=== PATIENT | female | born 1975 | race Caucasian/White ===

== ENCOUNTER 2022-07-14 09:00 | Emergency (ER) | payer OTHER, SELFPAY ==
[2022-07-14 09:08] VITALS: BP 136/86; PULSE 76; RESP 20; TEMP 36.4; O2SAT 100
--- NOTE | 2022-07-14 09:23 | ED.FEMALEGU ---
HPI - Female Genitourinary General Chief complaint: Urogenital-Female Stated complaint: Urinary Problem Time Seen by Provider: 07/14/22 09:21 Source: patient and RN notes reviewed Mode of arrival: ambulatory Limitations: no limitations History of Present Illness HPI Narrative: 47-year-old female presents with concern for urinary tract infection or kidney infection. Reports for 1 week she has had bilateral flank pain, urinary urgency. Reports the urgency is waking her up in the middle of the night. She reports feeling feverish on and off for the last week. She denies dysuria, nausea, vomiting. She reports history of urinary tract infections with similar symptoms. She reports she is taken ibuprofen with occasional relief. MD elicited complaint: UTI Related Data Allergies Allergy/AdvReac Type Severity Reaction Status Date / Time No Known Drug Allergies Allergy Unknown Verified 04/17/14 11:55 Review of Systems Review of Systems: CONSTITUTIONAL: Reports malaise, and feeling feverish CARDIOVASCULAR: Denies chest pain, palpitations, or edema. RESPIRATORY: Denies cough or dyspnea. GASTROINTESTINAL: Denies abdominal pain, nausea, vomiting, diarrhea GENITOURINARY: Denies dysuria, frequency, suprapubic pressure, hematuria. Reports bilateral flank pain and urinary urgency SKIN: Denies rash or itching. MUSCULOSKELETAL: Denies back pain or myalgia. All systems reviewed & are unremarkable except as noted in HPI and below PMFSH Comments At time of signature, agree with nursing past medical, surgical, social and family history. There is no relevant family history pertinent to the presenting complaint Exam Narrative: GENERAL: Well-appearing, well-nourished, and in no acute distress. HEAD: Normocephalic. EYES: PERRLA, conjunctivae clear. NECK: Supple. No lymphadenopathy CHEST: Clear to auscultation. No respiratory distress. HEART: Regular rate and rhythm. ABDOMEN: Soft, right lower quadrant tenderness, otherwise nontender nondistended, normal active bowel sounds, no palpable or pulsatile masses, no guarding. Bilateral CVA tenderness SKIN: War dry, no rash. NEURO: Alert and oriented x3. PSYCH: Normal mood and affect Course Course Emergency Course: UA findings with patient. Discussed option of starting antibiotic now or waiting for urine culture results, patient would prefer to start antibiotic now. Advised patient to call to inquire about urine culture results later this week. Patient is aware of diagnosis, understands and agrees to treatment plan. Anticipatory guidance given. Patient agrees to follow-up as directed and is aware of reasons to seek care at the emergency department. Portions of this record may have been created with voice recognition software Level of Care: Express Care Visit Vital Signs Vital signs: Vital Signs Temperature 97.5 F L 07/14/22 09:08 Pulse Rate 76 07/14/22 09:08 Respiratory Rate 20 07/14/22 09:08 Blood Pressure 136/86 07/14/22 09:08 Pulse Oximetry 100 07/14/22 09:08 Oxygen Delivery Room Air 07/14/22 09:08 Temperature 97.5 F L 07/14/22 09:08 Pulse Rate 76 07/14/22 09:08 Respiratory Rate 20 07/14/22 09:08 Blood Pressure 136/86 07/14/22 09:08 Pulse Oximetry 100 07/14/22 09:08 Oxygen Delivery Room Air 07/14/22 09:08 Reviewed. MDM - Female Genitourinary MDM Narrative Medical decision making narrative: Exam findings and UA show no acute concerns or changes; patient is non-toxic appearing and is in no distress. Patient is appropriate for outpatient treatment and follow-up. Differential Diagnosis Differential diagnosis: Likely urinary tract infection and cystitis Lab Data Labs: Urine Glucose Negative Reference Range: Negative Urine Bilirubin Negative Reference Range: Negative Urine Ketone Negative
== END 2022-07-14 09:36 | disposition home or self-care (01) ==
PROVIDERS: Emergency Provider Nurse Practitioner; PCP Nurse Practitioner Family
DX: R39.15 Urgency of urination (principal); R10.9 Unspecified abdominal pain
CPT/HCPCS: 81003; 87086; 99203; G0463

== ENCOUNTER 2024-10-13 08:53 | Outpatient (CLI) | payer OTHER, SELFPAY ==
[2024-10-13 19:27] LABS: Hematocrit 37.7 % (37.0-47.0); Hemoglobin 12.4 g/dL (12.0-15.0); Mean Corpuscular HGB Conc 32.9 g/dl (32-36); Mean Corpuscular Hemoglobin 32.3 pg (26-34); Mean Corpuscular Volume 98.2 fl (80-100); Mean Platelet Volume 10.1 fl (7.4-10.4); Platelet Count Result 222 k/mm3 (150-375); Red Blood Count 3.84 M/mm3 (4.2-5.4); Red Cell Distribution Width 13.4 % (11.5-14.5); White Blood Count 4.9 K/mm3 (4.5-10.0)
[2024-10-13 20:28] LABS: LDL Cholesterol Direct 78 mg/dL
[2024-10-13 20:32] LABS: Alanine Aminotransferase 27 U/L (6-35); Albumin Level 4.5 g/dL (3.5-5.1); Alkaline Phosphatase 76 U/L (38-126); Anion Gap 6 mmol/L (4-12); Aspartate Amino Transferase 58 U/L (14-36); Blood Urea Nitrogen 19 mg/dL (7-17); Calcium 9.2 mg/dL (8.4-10.2); Carbon Dioxide 25 mmol/L (22-30); Chloride 104 mmol/L (98-107); Cholesterol 232 mg/dL (0-200); Estimated Glomerular Filt Rate > 60; Glucose 92 mg/dL (65-110); Potassium 4.3 mmol/L (3.4-5.0); Sodium 135 mmol/L (137-145); Triglycerides 69 mg/dL (<150)
[2024-10-13 20:34] LABS: HDL Direct 115 mg/dL
[2024-10-13 21:23] LABS: Vitamin D 25 Hydroxy 33.5 ng/mL
[2024-10-13 21:25] LABS: Hemoglobin A1C 5.7 % (<5.7)
== END 2024-10-13 08:54 | disposition home or self-care (01) ==
LOC: ANHBWCLAB 08:55
PROVIDERS: PCP Nurse Practitioner Adult Health; Visit Provider Nurse Practitioner Adult Health
DX: R63.5 Abnormal weight gain (principal); Z13.9 Encounter for screening, unspecified; Z87.81 Personal history of (healed) traumatic fracture
CPT/HCPCS: 36415; 80053; 80061; 82306; 82607; 83036; 84443; 85027

== ENCOUNTER 2024-11-10 11:55 | Outpatient (CLI) | payer OTHER, SELFPAY ==
--- NOTE | ~2024-11-10 | XR_ITS ---
EXAMINATION: XR lumbar spine 2-3V DATE: 11/10/2024 12:06 INDICATION: Chronic low back pain. TECHNIQUE: 3 views of lumbar spine were obtained. COMPARISON: None. FINDINGS: There is 3 degrees levocurvature of lumbar spine. Vertebral body heights are normal. Interv ertebral disc heights are normal. There are endplate osteophytes at multiple levels. There is multile laura facet joint osteoarthritis, severe in lower lumbar spine. IMPRESSION: 1. Mild lumbar spondylosis. Reviewed, dictated and finalized at location A. ON DIOXIDE OPERATOR IMPRESSION: 1. Mild lumbar spondylosis.
== END 2024-11-10 11:56 | disposition home or self-care (01) ==
LOC: ANHBWCIMG 11:56
PROVIDERS: PCP Nurse Practitioner Adult Health; Visit Provider Nurse Practitioner Adult Health
DX: M47.26 Other spondylosis with radiculopathy, lumbar region (principal)
CPT/HCPCS: 72100

== ENCOUNTER 2024-12-12 08:45 | Outpatient (CLI) | payer OTHER, SELFPAY ==
--- NOTE | ~2024-12-12 | MR_ITS ---
Procedure: MR lumbar spine wo con Ordering provider: Daylin Espinosa APRN History: . M54.16 - Radiculopathy, lumbar region . Comparison: None. Technique: MRI of lumbar spine without contrast. FINDINGS: SPINAL CORD: Normal. The cord ends at the level of L1. VERTEBRAL BODIES: Normal height and alignment. No compression fracture. Normal marrow signal. DISK SPACES: Normal. Bilateral facet joint disease at the level of L2-L3, L3-L4 and L4-L5.. STENOSIS: None. PARASPINOUS SOFT TISSUES: Normal. IMPRESSION: No compression fracture or stenosis of the lumbar spine. Multilevel facet joint disease with no evidence of spinal canal stenosis, intervertebral foraminal na rrowing and root compression seen. Reviewed, dictated and finalized at location A. E SPECIALIST IMPRESSION: No compression fracture or stenosis of the lumbar spine. Multilevel facet joint disease with no evidence of spinal canal stenosis, inter vertebral foraminal narrowing and root compression seen.
== END 2024-12-12 08:46 | disposition home or self-care (01) ==
PROVIDERS: PCP Nurse Practitioner Adult Health; Visit Provider Nurse Practitioner Adult Health
DX: M54.16 Radiculopathy, lumbar region (principal); M51.369 Other intervertebral disc degeneration, lumbar region without mention of lumbar back pain or lower extremity pain
CPT/HCPCS: 72148

== ENCOUNTER 2025-03-31 11:49 | Outpatient (CLI) | payer OTHER, SELFPAY ==
--- NOTE | ~2025-03-31 | MM_ITS ---
EXAMINATION: MM screening zachary BI w kane HISTORY: Screening TECHNIQUE: Craniocaudal and mediolateral oblique 3-D tomosynthesis images were obtained and synthetic 2-D images were generated. CAD analysis was submitted and interpreted. COMPARISON: No prior mammogram is available for comparison at this institution. BREAST PARENCHYMAL COMPOSITION: Not dense: There are scattered areas of fibroglandular density. FINDINGS: There are bilateral breast asymmetries in the upper outer quadrant of the right breast, mid dle third and upper outer quadrant of the left breast, middle third. There are no suspicious calcific ations. IMPRESSION: 1. Bilateral breast asymmetries. 2. Recommend comparison to previous outside mammograms. If prior outside mammograms are not available , correlation with additional diagnostic mammogram and possible additional ultrasound recommended. BI-RADS Category 0: Incomplete: Needs additional imaging evaluation. Reviewed, dictated and finalized at location A. IMPRESSION: 1. Bilateral breast asymmetries. 2. Recommend comparison to previous outside mammograms. If prior outside mammog cezar are not available, correlation with additional diagnostic mammogram and po ssible additional ultrasound recommended. BI-RADS Category 0: Incomplete: Needs additional imaging evaluation.
== END 2025-03-31 11:50 | disposition home or self-care (01) ==
LOC: MICIMG 11:50
PROVIDERS: PCP Nurse Practitioner Adult Health; Visit Provider Nurse Practitioner Adult Health
DX: Z12.31 Encounter for screening mammogram for malignant neoplasm of breast (principal); R92.8 Other abnormal and inconclusive findings on diagnostic imaging of breast
CPT/HCPCS: 77063; 77067

== ENCOUNTER 2025-04-19 09:51 | Outpatient (CLI) | payer OTHER, SELFPAY ==
--- NOTE | ~2025-04-19 | MMUS_ITS ---
EXAMINATION: MM diagnostic zachary BI w kane, US breast BI complete HISTORY: Follow-up breast asymmetries TECHNIQUE: Additional 3-D tomosynthesis images of the breasts were performed and synthetic 2-D images were generated. CAD analysis was submitted and interpreted. High resolution bilateral complete breas t ultrasound was performed. COMPARISON: 03/31/2025 BREAST PARENCHYMAL COMPOSITION: Not dense: There are scattered areas of fibroglandular density. FINDINGS: MAMMOGRAPHIC FINDINGS: There is no mammographic evidence for malignancy in the right breast. There are persistent areas of p ossible architectural distortion in the upper outer quadrant of the left breast, middle third. No dis crete mass. There are no suspicious calcifications. No skin thickening. ULTRASOUND: Complete US of all 4 quadrants of the breast/s and retroareolar region was reviewed. Right breast: At 5:00, 1 cm from the nipple there is a 7 mm intramammary lymph node. At 6:00, 2 cm fr om the nipple there is an oval hypoechoic 3 mm mass with internal heterogeneous echoes, circumscribed margins, parallel orientation, no posterior features and no internal vascularity, likely benign. At 9:00, 3 cm from the nipple there is a 4 mm cyst. Left breast: At 12:00, 2 cm from the nipple there is heterogeneous ill-defined soft tissue with inter nal vascularity, predominantly hypoechoic echotexture with areas of posterior shadowing. Some images suggest an antiparallel hypoechoic mass measuring approximately 3 mm. At 2:00, 4 cm from the nipple t here is a 4 mm cyst. At 5:00, 3 cm from the nipple there is an oval parallel oriented hypoechoic 3 mm mass without internal vascularity or posterior features, likely benign. At 10:00, 4 cm from the nipp le there is a 8 mm cyst. IMPRESSION: 1. Complex hypoechoic soft tissue of the left breast by ultrasound at 12:00, 2 cm from the nipple pos sibly corresponding to the area of asymmetry by mammography. Ultrasound-guided left breast biopsy rec ommended. 2. Additional likely benign bilateral breast masses are demonstrated for which [facility] BI-RADS category 4, suspicious findings. Reviewed, dictated and finalized at location B. IMPRESSION: 1. Complex hypoechoic soft tissue of the left breast by ultrasound at 12:00, 2 cm from the nipple possibly corresponding to the area of asymmetry by mammograp hy. Ultrasound-guided left breast biopsy recommended. 2. Additional likely benign bilateral breast masses are demonstrated for which six-month follow-up limited bilateral breast ultrasound recommended. BI-RADS category 4, suspicious findings.
== END 2025-04-19 09:52 | disposition home or self-care (01) ==
LOC: MICIMG 09:51
PROVIDERS: PCP Nurse Practitioner Adult Health; Visit Provider Nurse Practitioner Adult Health
DX: R92.8 Other abnormal and inconclusive findings on diagnostic imaging of breast (principal)
CPT/HCPCS: 76641; 77062; 77066; G0279

== ENCOUNTER 2025-05-12 08:43 | Outpatient (CLI) | payer OTHER, SELFPAY ==
--- NOTE | ~2025-05-12 | US_ITS ---
US breast LT limited 05/12/2025 09:22 Indication: Possible mass seen on prior examination with shadowing. Procedure: High-resolution Limited ultrasound of the left breast Comparison: Ultrasound dated 04/19/2025 Findings: At 12:00, 2 cm from the nipple there is heterogeneous soft tissue with mildly prominent ser piginous ducts. Due to multiple interfaces there is posterior shadowing. No discrete mass identified for biopsy purposes. Impression: 1: Probable benign soft tissue in the area of sonographic concern at 12:00, 2 cm from the nipple. Six -month follow-up diagnostic left mammogram and Limited left breast ultrasound recommended. BI-RADS CATEGORY 3-PROBABLY BENIGN FINDING RECOMMENDATION: Six-month follow-up diagnostic left mammogram and Limited left breast ultrasound jason mmended. Reviewed, dictated and finalized at location [] Impression: 1: Probable benign soft tissue in the area of sonographic concern at 12:00, 2 c m from the nipple. Six-month follow-up diagnostic left mammogram and Limited le ft breast ultrasound recommended. BI-RADS CATEGORY 3-PROBABLY BENIGN FINDING RECOMMENDATION: Six-month follow-up diagnostic left mammogram and Limited left breast ultrasound recommended.
== END 2025-05-12 08:44 | disposition home or self-care (01) ==
PROVIDERS: PCP Nurse Practitioner Adult Health; Visit Provider Nurse Practitioner Adult Health
DX: N63.20 Unspecified lump in the left breast, unspecified quadrant (principal); R92.8 Other abnormal and inconclusive findings on diagnostic imaging of breast
CPT/HCPCS: 76642

== ENCOUNTER 2025-06-14 09:47 | Outpatient (CLI) | payer OTHER, SELFPAY ==
[2025-06-14 18:32] LABS: Hematocrit 35.0 % (37.0-47.0); Hemoglobin 11.4 g/dL (12.0-15.0); Mean Corpuscular HGB Conc 32.6 g/dl (32-36); Mean Corpuscular Hemoglobin 32.2 pg (26-34); Mean Corpuscular Volume 98.9 fl (80-100); Platelet Count Result 226 k/mm3 (150-375); Red Blood Count 3.54 M/mm3 (4.2-5.4); White Blood Count 5.9 K/mm3 (4.5-10.0)
[2025-06-14 18:45] LABS: Alanine Aminotransferase 22 U/L (6-35); Albumin Level 4.4 g/dL (3.5-5.1); Alkaline Phosphatase 80 U/L (38-126); Anion Gap 7 mmol/L (4-12); Aspartate Amino Transferase 49 U/L (14-36); Bilirubin,Total 1.2 mg/dL (0.2-1.3); Blood Urea Nitrogen 20 mg/dL (7-17); Calcium 9.4 mg/dL (8.4-10.2); Carbon Dioxide 27 mmol/L (22-30); Chloride 102 mmol/L (98-107); Cholesterol 221 mg/dL (0-200); Estimated Glomerular Filt Rate > 60; Glucose 94 mg/dL (65-110); HDL Direct 102 mg/dL; Potassium 4.5 mmol/L (3.4-5.0); Sodium 136 mmol/L (137-145); Total Protein 7.4 g/dL (6.3-8.2); Triglycerides 127 mg/dL (<150)
[2025-06-14 19:20] LABS: Thyroid Stimulating Hormone 1.710 uIU/mL (0.465-4.680)
[2025-06-14 19:39] LABS: Vitamin B12 387.0 pg/mL (239-931)
== END 2025-06-14 09:48 | disposition home or self-care (01) ==
LOC: ANHBWCLAB 09:49
PROVIDERS: PCP Nurse Practitioner Adult Health; Visit Provider Nurse Practitioner Adult Health
DX: D64.9 Anemia, unspecified (principal); R53.83 Other fatigue; Z00.00 Encounter for general adult medical examination without abnormal findings
CPT/HCPCS: 36415; 80053; 80061; 82306; 82607; 84443; 85027

== ENCOUNTER 2025-06-20 11:32 | Outpatient (CLI) | payer OTHER, SELFPAY ==
[2025-06-20 19:42] LABS: Iron 83 ug/dL (37-170)
[2025-06-20 19:54] LABS: Percent Iron Saturation 26 % (20-50)
[2025-06-20 20:19] LABS: Ferritin 71.90 ng/mL (11.1-264)
== END 2025-06-20 11:33 | disposition home or self-care (01) ==
LOC: ANHBWCLAB 11:33
PROVIDERS: PCP Nurse Practitioner Adult Health; Visit Provider Nurse Practitioner Adult Health
DX: D64.9 Anemia, unspecified (principal)
CPT/HCPCS: 36415; 82728; 83540; 83550

== ENCOUNTER 2025-11-02 10:07 | Outpatient (CLI) | payer OTHER, SELFPAY ==
--- OUTSIDE RECORDS SUMMARY | 2025-11-02 11:07 | XMS_ITS ---
Author Organization [facility] Address [address] [place] [address] Care Team Providers Care Car Carder Name Role Phone Daylin Espinosa NP Primary Care Provider [phone] Active Problems Problem Noted Date Diagnosed Date Abnormal mammogram 09/20/2025 Allergies 09/20/2025 Anemia, unspecified 09/20/2025 Anxiety 09/20/2025 Brain fog 09/20/2025 Chronic joint pain 09/20/2025 Facet arthritis of lumbar region 09/20/2025 Fatigue 09/20/2025 Headache 09/20/2025 Hypertension 09/20/2025 IBS (irritable bowel syndrome) 09/20/2025 Lumbar radicular pain 09/20/2025 Mass of breast, left 09/20/2025 Migraine 09/20/2025 Obesity 09/20/2025 Snoring 09/20/2025 Vaginismus 09/20/2025 Witnessed episode of apnea 09/20/2025 Ductal carcinoma in situ (DCIS) of left breast 1 Foot sprain, left, initial encounter 11/08/2021 Right foot sprain, initial encounter 09/22/2020 Appendicitis 07/03/2019 Current Treatment and Therapy Plans No current plan information found. Past Treatment and Therapy Plans No past plan information found. Lifetime Dose Tracking * Chemical Lifetime Dose Automatic Entry Manual Entr y Fluoro Time 0.046 minutes 0.046 minutes 0 minutes Air kerma at the reference point (Ka,r) 0.005 mGy 0 .005 mGy 0 mGy
--- OUTSIDE RECORDS SUMMARY | 2025-11-02 11:07 | XMS_ITS | Encounter Summary ---
Author Organization [facility] Address [address] [place] [address] Phone Care Team Providers Care Latex Foam Worker Name Role Phone Daylin Espinosa NP Primary Care Provider [phone] Reason for Visit * Reason Onset Date Comments Patient issue/concern 10/05/2025 Encounter Details Date Type Department Care Team (Late st Contact Info) Description 10/05/2025 Telephone [facility] Medicine Surgery [address] [place] [address] Aft, Martha Franco MD PhD [address] [place] [address] Patient issue/concern Social History Tobacco Use Types Packs/Day Years Used Date Smoking Tobacco: Never Passive Smoke Exposure: Never Smokeless Tobacco: Never Alcohol Use Standard Drinks/Week Comments Not Currently 0 (1 standard drink = 0.6 oz pur e alcohol) AUDIT-C Answer Date Recorded Frequency of Alcohol Consumption 2-4 times a thu09/22/2020 Average Number of Drinks Not on file 020 Frequency of Binge Drinking Not on file 08/31 PHQ-2 Answer Date Recorded PHQ-2 Score 0 07/23/2019 Comments No Sex and Gender Information Value Date Recorded Sex Assigned at Not on file Legal Sex Female 2:22 AM RECEIVING TEAM MEMBER Gender Identity Not on file Sexual Orientation Not on file documented as of this encounter Miscellaneous Notes * Telephone Encounter - Anika Madison CMA - 10/23/2025 8:48 AM CST Faxed records 10/23/2025 IVING TEAM MEMBER * Telephone Encounter - Chuck Choudhary - 10/06/2025 10:47 AM CST RN called the number back and Left voice mail providing the phone and fax number to medical recordsso they can receive the records they need. IVING TEAM MEMBER * Telephone Encounter - Sussy Samuels - 10/05/2025 2:05 PM CST Patient Query: Was an attempt to transfer to the assigned clinical staff or backline? No. Reason for call?: [facility] called in regarding the medical request they sent.They would like to know when it will be sent. Fax Number: [phone] Who is the caller: Shruti What is the best number for them to contact for a call back: [phone] Last office visit: 08/30/2025 Date of Surgery: 06/28/2021 IVING TEAM MEMBER documented in this encounter Plan of Treatment Upcoming Encounters Date Type Department Care Team (Latest Contact Info) Description 11/28/2025 12:00 PM RECEIVING TEAM MEMBER Hospital Encounter [facility] Operating Room [facility] [address] [place] [id number] Kodi Ortiz MD [phone] [place] [address] Martha Bonilla MD PhD [address] [place] [address] 11/28/2025 12:00 PM RECEIVING TEAM MEMBER - 11/28/2025 4:30 PM RECEIVING TEAM MEMBER Surgery [facility] Operating Room [facility] [address] [place] [address] Aft, Martha Franco MD PhD [address] [place] [address] (COMBO AFT / ORTIZ) MASTECTOMY BILATERAL Scheduled Procedures Name Priority Associated Diagnoses Date/Ti me MASTECTOMY BILATERAL Ductal carcinoma in situ (DCIS) of left breast 11/28/2025 12:00 PM RECEIVING TEAM MEMBER BIOPSY AXILLARY SENTINEL LYMPH NODE Ductal carcinoma in situ (DCIS) of left breast 11/28/2025 12:00 PM RECEIVING TEAM MEMBER INSERTION TISSUE ARMY RANGER - BREAST Ductal carcinoma in situ (DCIS) of left breast 11/28/2025 12:00 PM RECEIVING TEAM MEMBER documented as of this encounter Visit Diagnoses Not on filedocumented in this encounter Care Teams Latex Foam Worker Relationship Specialty Start Date End Date Daylin Espinosa NP [address] [place] [address] PCP - General Nurse Practitioner 06/14/25 documented as of this encounter
--- OUTSIDE RECORDS SUMMARY | 2025-11-02 11:07 | XMS_ITS | Clinical Summary ---
Author Organization [facility] Address [address] [place] [address] Care Team Providers Care [employer] Name Role Phone Daylin Espinosa NP Primary Care Provider [phone] Allergies No known active allergies Medications lisinopriL (PRINIVIL,ZESTRI L) 10 mg tablet Take 1 tablet (10 mg total) by mouth 12/08/2024 Active phentermine (ADIPEX-P) 37.5 mg tablet Take 1 tablet (37.5 mg total) by mouth 06/14/2025 Active Active Problems Problem Noted Date Diagnosed Date [...] foot sprain, initial encounter 09/22/2020 Appendicitis 07/03/2019 Encounters Date Type Department Care Team Description 10/11/2025 Orders Only [facility] Medicine Surgery [address] [facility] [address] [place] [address] Martha Bonilla MD PhD 10/05/2025 Telephone [facility] Medicine Surgery [facility] [address] [place] [address] Martha Bonilla MD PhD Patient issue/concern 09/20/2025 1:30 PM CDT Office Visit [facility] Medicine Surgery [address] [place] [address] Advanced Medicine 6th [place] [address] [place] [address] Kodi Bowser MD Ductal carcinoma in situ (DCIS) of left breast (Primary Dx) 08/30/2025 1:00 PM CDT Office Visit [facility] Surgery [address] [place] [address] [address] [place] [address] Martha Bonilla MD PhD Ductal carcinoma in situ (DCIS) of left breast (Primary Dx) 08/30/2025 Orders Only [facility] Surgery [address] [place] [address] [address] [place] [id number] Martha Bonilla MD PhD Ductal carcinoma in situ (DCIS) of left breast (Primary Dx) 08/25/2025 6:27 AM CDT - 08/25/2025 11:59 PM CDT Hospital Encounter [facility] Rad[facility] [address] [place] [address] Ductal carcinoma in situ (DCIS) of left breast; Dense breast tissue Discharge Disposition: Discharge to home or self care 08/25/2025 Results Follow-Up [facility] Medicine Surgery [address] [place] [address] [address] [place] [phone] Gwen Teague PA MRI Breast Bilateral W WO Contrast 08/07/2025 Results Follow-Up [facility] Medicine Surgery [address] [place] [address] [address] [place] [phone] Gwen Teague PA Surgical pathology from Last 3 Months Immunizations Immunization Administration Dates Next Due Influenza, Quadrivalent, Spl it, Intramuscular 06/30/2016 Influenza, Quadrivalent, Spl it, Preservative Free, Intramuscular 07/18/2023,08/21/2020,08/20/2019,08/14,07/15/2016 Influenza, Trivalent, Preser vative Free, Intramuscular 10/03/2015 Moderna SARS-CoV-2 Monovalen t Vaccination (12+ YRS) 05/09/2021,04/11/2021 Tdap 05/26/2017 Surgical History Surgery Date Site/Laterality Comments SECTION 11/30/1993 - 11/29/1994 HYSTERECTOMY partial SECTION 11/30/2000 - 11/29/2001 N/A APPENDECTOMY 07/03/2019 BREAST BIOPSY 08/02/2025 Left SECTION 11/30/2007 - 11/29/2008 EXCISION / CURETTAGE BONE CY ST TARSAL / METATARSAL Right 2020 Medical History Medical History Date Comments Kidney infection recurrent Hypertension Overweight Family History Medical History Relation Name Comments Leukemia Father Lung cancer Maternal Grandmother COPD Mother Heart disease Mother Lung cancer Mother Breast cancer Paternal Grandmother Relation Name Status Comments Father Maternal Grandmother Mother Paternal Grandmother Social History Tobacco Use Types Packs/Day Years Used Date Smoking Tobacco: Never Passive Smoke Exposure: Never Smokeless Tobacco: Never Tobacco Cessation:Counseling Given: Not Answered Alcohol Use Standard Drinks/Week Comments Not Currently [...] on file Legal Sex Female 2:22 AM CREDIT CONTROLLER Gender Identity Not on file Sexual Orientation Not on file Obstetrics History Para Term AB IAB SAB Ectopic Multiple Livin g Live Births 3 3 Date Outcome GA Total Labor Labor/2nd/3rd Weight Sex Type Anes PTL Beryl A1 A5 Name Clin Last Filed Vital Signs Vital Sign Reading Time Taken Comments Blood Pressure 152/98 11/08/2021 10:59 AM CREDIT CONTROLLER Pulse 70 11/08/2021 10:59 AM CREDIT CONTROLLER Temperature 36.6 C (97.9 F) 11/08/2021 10:59 AM CREDIT CONTROLLER Respiratory Rate 18 11/08/2021 10:59 AM CREDIT CONTROLLER Oxygen Saturation 100% 11/08/2021 10:59 AM CREDIT CONTROLLER Inhaled Oxygen Concentration - - Weight 7.983 kg (17 lb 9.6 oz) 08/30/2025 12:50 PM CDT Height 167 cm (5' 5.75) 08/30/2025 12:50 PM CDT Body Mass Index 2.86 08/30/2025 12:50 PM CDT Plan of Treatment Upcoming Encounters Date Type Department Care Team (Latest Contact Info) Description 11/28/2025 12:00 PM CREDIT CONTROLLER Hospital Encounter [facility] ([facility]) [address] [place] [address] Kodi Bowser MD [phone] [place] [address] Aft, Martha Franco MD PhD [address] [place] [address] 11/28/2025 12:00 PM CREDIT CONTROLLER - 11/28/2025 4:30 PM CREDIT CONTROLLER Surgery [facility] Operating [facility] ([facility]) [address] [place] [address] Chad, Martha Franco MD PhD [address] [place] [address] (COMBO CHAD / [place]) MASTECTOMY BILATERAL Scheduled Procedures Name Priority Associated Diagnoses Date/Ti me MASTECTOMY BILATERAL Ductal carcinoma in situ (DCIS) of left breast 11/28/2025 12:00 PM CREDIT CONTROLLER BIOPSY AXILLARY SENTINEL LYMPH NODE Ductal carcinoma in situ (DCIS) of left breast 11/28/2025 12:00 PM CREDIT CONTROLLER INSERTION TISSUE TOOLS ADMINISTRATOR - BREAST Ductal carcinoma in situ (DCIS) of left breast 11/28/2025 12:00 PM CREDIT CONTROLLER Health Maintenance Due Date Last Done Comments Breast Cancer Screening-Mammogram 1974 Colon Cancer Screening-Colonoscopy 1974 Hepatitis C Screening 1974 Hepatitis B Screening 1992 Regular Well Visit/Exam 18-64 1992 Depression Screening 07/02/2020 07/02/2019 Zoster Vaccine (1 of 2) 2024 Covid-19 Vaccine (3 - season) 2025 05/09/2021, 04/11/2021 Influenza Vaccine (#1) 2025 3, 08/21/2020, 08/20/2019, Additional history exists DTaP/Tdap/Td Vaccine (2 - Td or Tdap) 05/26/2027 05/26/2017 Pneumococcal vaccine <65 Aged Out No longer eligible based on patient's age to complete this topic Medical Devices Implanted Type Area Behavioral Health Associate Device Identifier Shelf Expiration Date Model / Serial / Lot [employer] Dartfire Cannulated Screw 2.0x 12 Per Deborah Frost Implanted:Qty: 1 on 06/28/2021 by Charles Onofre DPM at [facility] [employer] [id number] / N/A / Description:[facility] ITEM# [id number] FLAGGED IN [facility] 07/01/21 NO CHARGE CODE ASSIGNED COST EA. 228.00 [employer] Marker Image 10cm 17ga Ultracor Crl Shpd Twirl Brst Strl Lf [id number] - [id number] Implanted:Qty: 1 on 08/02/2025 by Shy Haddad MD at [facility] Left: Breast [employer] [id number] 11/26/2027 [id number] / / [id number] Explanted Type Area Behavioral Health Associate Device Identifier Shelf Expiration Date Model / Serial / Lot K-Wire X3 (In And Out) [id number] Per Deborah Frost Explanted:Qty: 3 on 06/28/2021 at [facility] Wire Right: Foot [employer] C1713 [id number] / N/A / Description:[facility] ITEM [id number] FLAGGED IN [facility] CHARGE CODE ASSIGNED [id number] COST EACH 96.00 Procedures Procedure Name Priority Date/Time Associated Diagnosis Comments [facility] GERMLINE HEREDITARY CANCER TESTING Routine 08/30/2025 1:52 PM CDT Ductal carcinoma in situ (DCIS) of left breast MRI BREAST BILATERAL W WO CONTRAST Schedule Routine, Read Routine (OP Routine) 08/25/2025 7:36 AM CDT Ductal carcinoma in situ (DCIS) of left breast Dense breast tissue from Last 3 Months Results * [facility] BRACAnalysis and MyRisk / Note 2 Tests (M0001) (08/30/2025 1:52 PM CDT) Bracanalysis and Myrisk / Note 2 Tests No Significant Finding 09/08/2025 4:36 PM CDT [facility] Comment: BRACANALYSIS AND MYRISK / NOTE 2 TESTS See PDF for complete results. No Significant Genetic or Clinical History Finding VARIANT(S) OF UNCERTAIN SIGNIFICANCE (VUS) IDENTIFIED Blood specimen (specimen) Venous blood specimen / Unknown 08/30/2025 1:52 PM CDT 08/31/2025 10:17 AM CDT Narrative This result has genomic variants that were not included in this document. us Martha Bonilla MD PhD LAB GENETIC TESTING Final Result [facility] [address] [place] [address] [facility] [address] [place] [address] * (ABNORMAL) MRI Breast Bilateral W WO Contrast (08/25/2025 7:36 AM CDT) Anatomical Region Laterality Modality Breast Bilateral Magnetic Resonan ce 08/25/2025 11:1 3 AM CDT Impressions 08/25/2025 2:07 PM CDT 1. Enhancing 1.5 cm irregular mass in the left outer central breast at mid depth is consistent with biopsy-proven ductal carcinoma in situ. Associated linear non-mass enhancement extends anteriorly and posteriorly with total anterior to posterior span of mass and non-mass enhancement spanning 2.6 cm. Slightly wide anterior and posterior margins could be performed. No additional suspicious enhancement in the LEFT breast. 2. No MR evidence of malignancy in the right breast. OVERALL FINAL ASSESSMENT: BI-RADS Category 6: Known Biopsy-Proven Malignancy. RECOMMENDATION: Continued clinical and oncologic management of known LEFT breast malignancy. Dictated by: Jennifer Garcia MD The radiology attending physician has personally reviewed this study, and had reviewed and/or edited this written report and agrees with it. Electronically signed by: Noemy Moscoso M.D. Narrative 08/25/2025 2:07 PM CDT EXAMINATION: 1. MRI EXAMINATION OF THE BREASTS WITH AND WITHOUT CONTRAST 2. 3D POST PROCESSING ON A DEDICATED 3D WORKSTATION HISTORY: New diagnosis of breast cancer. 50-year-old woman with newly diagnosed left breast ductal carcinoma in situ. TECHNIQUE: MRI examination of the breasts per breast tumor protocol with and without gadolinium contrast. A dedicated breast imaging coil was used. The images were transferred to a breast CAD system for 3D post processing and contrast kinetics analysis. CONTRAST: Gadoterate meglumine, 14 ml COMPARISON: Multiple prior studies, most recently left breast ultrasound-guided biopsy 08/02/2025 BREAST COMPOSITION: Scattered fibroglandular tissue BACKGROUND PARENCHYMAL ENHANCEMENT: Minimal FINDINGS: An enhancing irregular mass with spiculated margins in the left outer central breast at mid depth with predominantly persistent kinetics and tissue marker metallic artifact at the inferomedial aspect is consistent with biopsy-proven malignancy (F -4.2). There is additional associated linear non-mass enhancement extending anteriorly and posteriorly from the mass less than 1 cm. The mass itself measures approximately 1.3 x 0.8 x 1.5 cm, however including the anterior and posterior non-mass enhancement, the anterior to posterior extent is up to 2.6 cm. An enhancing, T2 hyperintense intramammary lymph node in the right upper outer breast at posterior depth has been stable on mammograms dating back to 2008 and is considered benign. Enhancing focus in the left outer breast skin is favored to represent postbiopsy changes (TP -7.16). No abnormally enlarged lymph nodes are identified in the visualized portions of either axilla. Gwen SOLO Adam MRI PROCEDURES Final Result from Last 3 Months Insurance [employer] [facility] PPO [facility] [place] [id number] UMR UHC [facility] Advance Directives For more information, please contact: [phone] * Full Code (Latest Code Status on File) Date Activated Date Inactivated Comments 07/02/2019 10:17 PM 07/05/2019 6:08 PM Care Teams [employer] Crewmember Relationship Specialty Start Date End Date Daylin Espinosa NP [address] [place] [address] PCP - General Nurse Practitioner 06/14/25
[2025-11-02 18:26] LABS: Hematocrit 36.1 % (37.0-47.0); Hemoglobin 11.8 g/dL (12.0-15.0); Mean Corpuscular HGB Conc 32.7 g/dl (32-36); Mean Corpuscular Hemoglobin 32.2 pg (26-34); Mean Corpuscular Volume 98.4 fl (80-100); Platelet Count Result 249 k/mm3 (150-375); Red Blood Count 3.67 M/mm3 (4.2-5.4); White Blood Count 7.1 K/mm3 (4.5-10.0)
[2025-11-02 18:28] LABS: Alanine Aminotransferase 18 U/L (6-35); Albumin Level 4.5 g/dL (3.5-5.1); Alkaline Phosphatase 70 U/L (38-126); Anion Gap 5 mmol/L (4-12); Aspartate Amino Transferase 39 U/L (14-36); Bilirubin,Total 0.9 mg/dL (0.2-1.3); Blood Urea Nitrogen 16 mg/dL (7-17); Calcium 9.7 mg/dL (8.4-10.2); Carbon Dioxide 26 mmol/L (22-30); Chloride 106 mmol/L (98-107); Cholesterol 232 mg/dL (0-200); Estimated Glomerular Filt Rate > 60; Glucose 90 mg/dL (65-110); Potassium 4.4 mmol/L (3.4-5.0); Sodium 137 mmol/L (137-145); Total Protein 7.6 g/dL (6.3-8.2); Triglycerides 78 mg/dL (<150)
[2025-11-02 18:51] LABS: HDL Direct 115 mg/dL
[2025-11-02 19:22] LABS: Vitamin B12 370.0 pg/mL (239-931)
== END 2025-11-02 10:08 | disposition home or self-care (01) ==
LOC: ANHBWCLAB 10:07
PROVIDERS: PCP Nurse Practitioner Adult Health; Visit Provider Nurse Practitioner Adult Health
DX: I10 Essential (primary) hypertension (principal); E55.9 Vitamin D deficiency, unspecified; D64.9 Anemia, unspecified
CPT/HCPCS: 36415; 80053; 80061; 82306; 82607; 85027